=== PATIENT | male | born 1935 | race Caucasian/White ===

== ENCOUNTER 2016-03-20 10:20 | Emergency (ER) | payer OTHER ==
[~2016-03-20] VITALS: Ht 170.2 cm; Wt 63.5 kg
[2016-03-20] MEDS ORDERED: SODIUM CHLORIDE 0.9% 1,000 ML IV ONE (11:21)
[2016-03-20 12:42] LABS: Basophils # (auto) 0 uL; Basophils % (auto) 0.3 % (0.0-2.0); Eosinophils # (auto) 0.3 uL; Eosinophils % (auto) 3.4 % (0.0-7.0); Hematocrit 32.8 % (41.0-53.0); Hemoglobin 10.3 g/dL (13.5-17.5); Lymphocytes # (auto) 1.1 uL; Lymphocytes % (auto) 14.9 % (10.0-50.0); Mean Corpuscular Hemoglobin 27.5 pg (28.0-32.0); Mean Corpuscular Hgb Conc. 31.4 g/dL (32.0-36.0); Mean Corpuscular Volume 87.4 fL (80.0-100.0); Mean Platelet Volume 8.4 fL (7.4-10.4); Monocytes # (auto) 0.9 uL; Monocytes % (auto) 11.5 % (0.0-12.0); Neutrophils # (auto) 5.2 uL; Neutrophils % (auto) 69.9 % (37.0-80.0); Platelet Count (auto) 136 10^3/uL (140-450); Red Cell Distribution Width 15.3 % (11.6-16.0); SUSPECT VIEW TRANSMISSION; White Blood Cell 7.4 10^3/uL (4.4-10.8)
[2016-03-20 12:43] LABS: BUN/Creatinine Ratio 29.6; Calcium 8.9 mg/dL (8.5-10.1); Magnesium 2.6 mg/dL (1.6-2.6); Potassium 3.8 mmol/L (3.5-5.1)
[2016-03-20 13:44] LABS: Urine Bilirubin Negative (Negative); Urine Color Yellow (Yellow); Urine Glucose Normal (Normal); Urine Ketone Negative (Negative); Urine Nitrite Negative (Negative); Urine RBC 26 /hpf (0 - 3); Urine Urobilinogen Normal (Negative); Urine pH 5.5 (5.0-8.0)
[2016-03-20 13:46] LABS: Urine Blood 2+ /uL (Negative)
[2016-03-20 14:48] VITALS: BP 133/75
[2016-03-20] MEDS ORDERED: cefTRIAXone 1GM/50ML D5W 50 ML IV ONE (15:15)
== END 2016-03-20 16:34 | disposition home or self-care (01) ==
LOC: ER 10:28
DX: N39.0 Urinary tract infection, site not specified (principal); I10 Essential (primary) hypertension; E78.5 Hyperlipidemia, unspecified; N31.9 Neuromuscular dysfunction of bladder, unspecified; D29.1 Benign neoplasm of prostate; Z88.1 Allergy status to other antibiotic agents
CPT/HCPCS: 36415; 80048; 81001; 83735; 84443; 85025; 96361; 96365; 99285; J0696; J7030

== ENCOUNTER 2017-08-02 12:10 | Emergency (ER) | payer OTHER ==
[~2017-08-02] VITALS: Ht 167.6 cm; Wt 68.0 kg
[2017-08-02 12:33] VITALS: BP 128/63
[2017-08-02] MEDS ORDERED: ACETAMINOPHEN 325 MG TAB PO ONE (13:15)
== END 2017-08-02 13:17 | disposition home or self-care (01) ==
LOC: ER 12:10
DX: M65.841 Other synovitis and tenosynovitis, right hand (principal); M67.431 Ganglion, right wrist; I10 Essential (primary) hypertension; Z88.1 Allergy status to other antibiotic agents
CPT/HCPCS: 73110

== ENCOUNTER 2021-07-04 19:01 | Emergency (ER) | payer OTHER ==
[~2021-07-04] VITALS: Ht 170.2 cm; Wt 70.3 kg
[2021-07-04 20:21] LABS: Basophils # (auto) 0.2 10 ^3/uL (0-0.2); Basophils % (auto) 2.3 % (0.0-2.0); Eosinophils # (auto) 0 10 ^3/uL (0-0.8); Eosinophils % (auto) 0.1 % (0.0-7.0); Hematocrit 39.2 % (41.0-53.0); Hemoglobin 13.3 g/dL (13.5-17.5); Lymphocytes # (auto) 0.5 10 ^3/uL (0.4-5.4); Lymphocytes % (auto) 5.9 % (10.0-50.0); Mean Corpuscular Hemoglobin 30.5 pg (28.0-32.0); Mean Corpuscular Hgb Conc. 33.9 g/dL (32.0-36.0); Mean Corpuscular Volume 89.9 fL (80.0-100.0); Monocytes # (auto) 1.2 10 ^3/uL (0-1.3); Monocytes % (auto) 13.4 % (0.0-12.0); Neutrophils # (auto) 6.9 10 ^3/uL (1.6-8.6); Neutrophils % (auto) 78.3 % (37.0-80.0); Nucleated Red Blood Cells % 0.1 %; Red Blood Cells 4.36 10^6/uL (4.5-5.90); Red Cell Distribution Width 14.1 % (11.8-14.3); White Blood Cell 8.8 10^3/uL (4.4-10.8)
[2021-07-04 20:38] LABS: Albumin 3.3 g/dL (3.4-5.0); Calcium 8.6 mg/dL (8.5-10.1); Potassium 3.7 mmol/L (3.5-5.1)
[2021-07-04 20:42] LABS: Bilirubin, Total 0.4 mg/dL (0.2-1.0); Total Protein 6.7 g/dL (6.4-8.2)
[2021-07-04 23:36] LABS: Urine Bacteria FEW /hpf (None Seen); Urine Blood TRACE /uL (Negative); Urine Specific Gravity 1.016 (1.001-1.035); Urine WBC 643 /hpf (0 - 3); Urine WBC Clumps PRESENT /hpf (None Seen)
[2021-07-05] MEDS ORDERED: cefTRIAXone 1GM/50ML D5W 50 ML IV ONE ×2 (01:15→06:30)
[2021-07-05 09:00] VITALS: BP 128/49
== END 2021-07-05 10:44 | disposition home or self-care (01) ==
LOC: ER 19:01 → EDBD 19:01 → ER 07-05 09:45
DX: N39.0 Urinary tract infection, site not specified (principal); G93.41 Metabolic encephalopathy; R53.83 Other fatigue; I10 Essential (primary) hypertension; Z88.1 Allergy status to other antibiotic agents; Z20.822 Contact with and (suspected) exposure to COVID-19
CPT/HCPCS: 36415; 70450; 71045; 72125; 80053; 81001; 83880; 84484; 85025; 87426; 93005; 96365; 99291; J0696